=== PATIENT | male | born 1970 | race African-American/Black ===

== ENCOUNTER 2021-01-27 11:13 | Inpatient (IN) | payer SELFPAY ==
[~2021-01-27] VITALS: Ht 180.3 cm; Wt 87.2 kg
[2021-01-27] MEDS ORDERED: LORAZEPAM 2MG/ML CPJ IM STA (11:35)
[2021-01-27] MEDS ORDERED: DIPHENHYDRAMINE 50MG/ML VIAL IM STA (11:35)
[2021-01-27] MEDS ORDERED: HALOPERIDOL LACTATE 5MG/ML VIAL IM STA (11:35)
[2021-01-27] MEDS ORDERED: SODIUM CHLORIDE 0.9% 1,000 ML IV ONE ×4 (11:45→21:45)
[2021-01-27 14:57] LABS: BASOPHILS % 0.5 % (0.0-2.0); EOSINOPHILS % 0.4 % (0.0-5.0); HEMATOCRIT. 39.8 % (42.0-52.0); HEMOGLOBIN. 13.3 g/dL (14.0-18.0); LYMPHOCYTES % 10.2 % (20.0-50.0); MEAN CORPUSCULAR HEMOGLOBIN 28.5 pg (28.0-32.0); MEAN CORPUSCULAR VOLUME 85.2 fL (80.0-94.0); MEAN PLATELET VOLUME 9.8 fl (7.4-10.4); MONOCYTES % 5.2 % (2.0-8.0); NEUTROPHILS % 83.7 % (40.0-76.0); PLATELET 193 x1000/uL (130-400); RED BLOOD CELL COUNT 4.67 mill/uL (4.7-6.1); RED CELL DISTRIBUTION WIDTH 14.9 % (11.6-14.6)
[2021-01-27 14:58] LABS: CHLORIDE 107 mEq/L (98-107)
[2021-01-27 15:02] LABS: ETHANOL BLOOD < 10 mg/dL
[2021-01-27 15:18] LABS: CREATINE KINASE 2278 IU/L (39-308)
[2021-01-27 15:28] LABS: CLARITY URINE TURBID (CLEAR); COLOR URINE YELLOW (YELLOW); KETONES URINE TRACE (NEGATIVE); LEUKOCYTE ESTERASE URINE NEGATIVE (NEGATIVE); NITRITE URINE NEGATIVE (NEGATIVE); OCCULT BLOOD URINE NEGATIVE (NEGATIVE); PROTEIN URINE 1+ (NEGATIVE); SPECIFIC GRAVITY URINE 1.031 (1.005-1.030); UROBILINOGEN URINE 0.2 E.U./dL (0.2-1.0)
[2021-01-27 15:47] LABS: *AMPHETAMINES SCREEN URINE NEGATIVE (NEGATIVE); *BARBITURATES SCREEN URINE NEGATIVE (NEGATIVE); *BENZODIAZEPINES SCREEN URINE NEGATIVE (NEGATIVE)
[2021-01-27 15:48] LABS: *COCAINE SCREEN URINE NEGATIVE (NEGATIVE); CANNABINOID URINE SCREEN NEGATIVE (NEGATIVE); OPIATES URINE SCREEN NEGATIVE (NEGATIVE); PHENCYCLIDINE URINE SCREEN PRESUMTIVE POSITIVE (NEGATIVE)
[2021-01-27 15:51] LABS: METHADONE URINE SCREEN NEGATIVE (NEGATIVE)
[2021-01-27] MEDS ORDERED: GUAIFENESIN 200MG/10ML SUGAR FREE UDC PO PRN (23:45)
[2021-01-27] MEDS ORDERED: CLONIDINE 0.1MG TABLET PO PRN (23:45)
[2021-01-27] MEDS ORDERED: MAGNESIUM/ALUMINUM HYDROXIDE/SIMETHICONE 30ML UDC PO PRN (23:45)
[2021-01-27] MEDS ORDERED: DOCUSATE SODIUM 100MG CAPSULE PO PRN (23:45)
[2021-01-27] MEDS ORDERED: LORAZEPAM 2MG/ML CPJ IV PRN (23:45)
[2021-01-27] MEDS ORDERED: ONDANSETRON HCL 4MG/2ML INJ IV PRN (23:45)
[2021-01-27] MEDS ORDERED: ACETAMINOPHEN 325MG TABLET PO PRN (23:45)
[2021-01-28] VITALS: BP 122/65
[2021-01-28 00:02] VITALS: BP 122/65
[2021-01-28] MEDS: SODIUM CHLORIDE 0.9% 1,000 ML IV SCH ×2 (01:19→10:55)
[2021-01-28 04:00] VITALS: BP 108/54
[2021-01-28 05:46] LABS: CHLORIDE 110 mEq/L (98-107)
[2021-01-28 06:12] LABS: CREATINE KINASE 6024 IU/L (39-308)
[2021-01-28 06:59] LABS: EOSINOPHILS % 2.9 % (0.0-5.0); HEMATOCRIT. 39.6 % (42.0-52.0); LYMPHOCYTES % 32.7 % (20.0-50.0); MEAN CORPUSCULAR HEMOGLOBIN 28.4 pg (28.0-32.0); MONOCYTES % 8.3 % (2.0-8.0); NEUTROPHILS % 55.1 % (40.0-76.0); PLATELET 169 x1000/uL (130-400); RED CELL DISTRIBUTION WIDTH 14.8 % (11.6-14.6)
[2021-01-28 08:00] VITALS: BP 117/60
[2021-01-28] MEDS: ASPIRIN 81MG EC TABLET PO SCH (09:00)
[2021-01-28 12:00] VITALS: BP 124/82
[2021-01-28] MEDS ORDERED: PNEUMOCOCCAL 23-VAL P-SAC VAC 0.5 ML IM ONE (12:00)
[2021-01-28 20:00] VITALS: BP 115/73
[2021-01-29 00:23] VITALS: BP 111/67
[2021-01-29] MEDS: SODIUM CHLORIDE 0.9% 1,000 ML IV SCH (01:07)
[2021-01-29 04:00] VITALS: BP 117/53
[2021-01-29 08:00] VITALS: BP 113/74
[2021-01-29] MEDS: ASPIRIN 81MG EC TABLET PO SCH (09:00)
[2021-01-29 12:16] VITALS: BP 113/74
[2021-01-29 12:20] VITALS: BP 125/71
== END 2021-01-29 15:25 | disposition home or self-care (01) | DRG 351 ==
LOC: ER 11:13 → 6WST 22:56 → ENRESERV 23:20
PROVIDERS: ADMIT Hospitalist; ATTEND Hospitalist
DX: M62.82 Rhabdomyolysis (principal); G92 Toxic encephalopathy; N17.9 Acute kidney failure, unspecified; F16.10 Hallucinogen abuse, uncomplicated; F17.210 Nicotine dependence, cigarettes, uncomplicated; Z59.0 Homelessness
CPT/HCPCS: 36415; 71045; 80053; 80305; 80320; 81003; 82140; 82550; 83880; 84484; 85025; 90732; 93005; 99291; J1200; J1630; J2060; J7030; G0480

== ENCOUNTER 2021-07-03 16:17 | Emergency (ER) | payer MEDICAID ==
[~2021-07-03] VITALS: Ht 177.8 cm; Wt 90.0 kg
[2021-07-03 16:21] VITALS: BP 132/80
== END 2021-07-03 16:50 | disposition home or self-care (01) ==
LOC: ER 16:17
DX: S80.812A Abrasion, left lower leg, initial encounter (principal); F17.210 Nicotine dependence, cigarettes, uncomplicated; X58.XXXA Exposure to other specified factors, initial encounter; Y93.89 Activity, other specified; Y92.488 Other paved roadways as the place of occurrence of the external cause
CPT/HCPCS: 99283